=== PATIENT | male | born 1995 | race Caucasian/White ===

== ENCOUNTER 2021-06-29 22:56 | Emergency (ER) | payer OTHER ==
[~2021-06-29] VITALS: Ht 177.8 cm; Wt 61.2 kg
[2021-06-30] MEDS ORDERED: ZOFRAN4 MG PO (05:19)
[2021-06-30] MEDS ORDERED: ACETAMINOPHEN650 M2 PO (05:19)
[2021-06-30] MEDS ORDERED: PEPCID AC20 MG PO (05:19)
== END 2021-06-30 05:53 | disposition home or self-care (01) ==
LOC: ER 22:56
DX: R11.2 Nausea with vomiting, unspecified (principal); R50.9 Fever, unspecified; M54.9 Dorsalgia, unspecified; Z20.822 Contact with and (suspected) exposure to COVID-19